=== PATIENT | male | born 1980 | race Caucasian/White ===

== ENCOUNTER 2022-01-24 15:16 | Emergency (ER) | payer SELFPAY ==
[~2022-01-24] VITALS: Ht 180.3 cm; Wt 77.3 kg
--- NOTE | 2022-01-24 15:42 | NUR ---
Pt states he will wait in lobby until called to room.
[2022-01-24 16:04] LABS: BASOPHILS # (AUTO) 0.1 X10'3 (0-0.2); BASOPHILS % (AUTO) 1.2 % (0-1); EOSINOPHILS # (AUTO) 0.2 X10'3 (0-0.9); EOSINOPHILS % (AUTO) 3.5 % (0-6); HEMATOCRIT 43.5 % (42.0-52.0); HEMOGLOBIN 14.7 g/dl (14.0-17.9); LYMPHOCYTES # (AUTO) 1.9 X10'3 (1.1-4.8); LYMPHOCYTES % (AUTO) 29.3 % (21-51); MEAN CORPUSCULAR HEMOGLOBIN 29.1 PG (27.0-31.0); MEAN CORPUSCULAR HGB CONC 33.7 g/dL (33.0-36.5); MEAN CORPUSCULAR VOLUME 86.2 FL (78-98); MEAN PLATELET VOLUME 7.8 FL (7.4-10.4); MONOCYTES # (AUTO) 0.8 X10'3 (0-0.9); MONOCYTES % (AUTO) 12.9 % (2-12); NEUTROPHILS # (AUTO) 3.5 X10'3 (1.8-7.7); NEUTROPHILS % (AUTO) 53.1 % (42-75); PLATELET COUNT 283 X10'3 (140-440); RED BLOOD COUNT 5.05 X10'6 (4.70-6.10); RED CELL DISTRIBUTION WIDTH 14.4 % (11.5-14.5); WHITE BLOOD COUNT 6.5 X10'3 (4.5-11.0)
[2022-01-24 16:19] LABS: ALANINE AMINOTRANSFERASE 50 U/L (12-78); ALBUMIN 3.6 G/DL (3.4-5.0); ALKALINE PHOSPHATASE 127 IU/L (46-116); ANION GAP 11 (8-16); ASPARTATE AMINO TRANSFERASE 29 U/L (10-37); BILIRUBIN,TOTAL 0.1 MG/DL (0.1-1.0); BLOOD UREA NITROGEN 12 MG/DL (7-18); BUN/CREATININE RATIO 12.5 (5.4-32.0); CALCIUM 9.3 MG/DL (8.5-10.1); CHLORIDE 103 MMOL/L (99-107); CREATININE 0.96 MG/DL (0.60-1.10); GLUCOSE 85 MG/DL (70-104); SODIUM 140 MMOL/L (135-145); TOTAL CARBON DIOXIDE 25.8 MMOL/L (24-32); TOTAL PROTEIN 7.3 G/DL (6.4-8.2); eGFR 87 ML/MIN
--- NOTE | 2022-01-24 16:45 | NUR ---
Pt admitted from ER, pt. escorted back to ER overflow with staff. Pt. ambulated independently with no distress noted. Alert and oriented X2 to self and location, unsure of the date and current events. Pt. admitted with concerns of suicide. Pt. states he still has thoughts of suicde and is currently depressed, stating he would poinson himself somehow, run into traffic or have himself shot. Pt. appears irritable and asking about food. Snack provided. Bp. 123/82 p. 74 r. 16 temp. 97.7 100% O2 saturation on RA, complaining of tooth pain 06/03. Will notify MD for pain medication.
[2022-01-24 17:16] LABS: CLARITY,URINE CLEAR (Clear); COLOR,URINE YELLOW (Yellow); GLUCOSE, URINE NEGATIVE (Neg); KETONES,URINE NEGATIVE (Neg); LEUKOCYTE ESTERASE ,URINE NEGATIVE (Neg); NITRITES, URINE NEGATIVE (Neg); OCCULT BLOOD,URINE SMALL (Neg); PROTEIN,URINE NEGATIVE (Neg); UROBILINOGEN,URINE 0.2 E.U/dL (0.2-1.0)
[2022-01-24 17:19] LABS: UA COLLECTION TYPE CLN CATCH MIDSTREAM
[2022-01-24 17:20] LABS: BACTERIA,URINE NONE SEEN /HPF (Neg); MUCUS STRANDS NONE SEEN /LPF (Neg); RBC,URINE 0-2 /HPF (0-2); SQUAMOUS EPITHELIAL CELL,UR NONE SEEN /LPF (FEW); WBC,URINE NONE SEEN /HPF (0-4)
[2022-01-24 17:28] LABS: URINE AMPHETAMINE SCREEN POSITIVE (Neg); URINE BARBITUATE SCREEN NEGATIVE (Neg); URINE BENZODIAZEPINES SCREEN NEGATIVE (Neg); URINE CANNABINOID SCREEN POSITIVE (Neg); URINE COCAINE SCREEN NEGATIVE (Neg); URINE METHADONE SCREEN NEGATIVE (Neg); URINE OPIATE SCREEN NEGATIVE (Neg); URINE PHENCYCLIDINE SCREEN NEGATIVE (Neg)
--- NOTE | 2022-01-24 17:29 | NUR ---
Pt. alert and oriented to baseline, 1:1 done at bedside. Pt. cooperative. Requesting crackers and dinner. Snacks provided. Dr. Major medically cleared pt, aware of [place] Suicide Severity Risk.
--- NOTE | 2022-01-24 17:32 | NUR ---
Felecia LONGORIA notified me regarding patient complaining of tooth pain. Spoke to Dr. Wilder regarding something for dental pain. Dr. Wilder stated that he would place order for tylenol.
[2022-01-24] MEDS ORDERED: acetaminophen 325mg tablet PO STA (17:33)
[2022-01-24] MEDS ORDERED: NO HOME MEDS (17:45)
--- NOTE | 2022-01-24 17:58 | NUR ---
Packet faxed to [facility]. Patient awake sitting up in bed asking for dinner. No distress noted.
--- NOTE | 2022-01-24 18:14 | NUR ---
MARICEL tylenol 650mg administered for oral pain. Pt. ate dinner and is now resting in bed. Addendum: 01/24/22 at 1815 by ARI Report given to SWATI Bond.
--- NOTE | 2022-01-24 18:17 | NUR ---
Pt. sitting up eating dinner at this time.
--- NOTE | 2022-01-24 18:49 | NUR ---
One to one with the patient to assess severity of depressive symptoms and for the presense/severity of psychotic symptoms. The patient gave minimal replies to the assessment questions but his replies were congruent to what was asked. He denies A/V hallucinations. He does report that he feels suicidal and that he feels "nasty" and then clarified that he felt irritable. He was up dated on the plan of care. His packet was received by [facility] and they stated that a clincian would be [facility] He reports he is from [place] and that he is homeless.
--- NOTE | 2022-01-24 20:01 | NUR ---
[facility] clinician here to assess the patient but the patient refused stated he did not want to talk to her.
[2022-01-24 20:25] VITALS: BP 123/82
== END 2022-01-24 20:29 | disposition home or self-care (01) ==
LOC: ER 15:19
DX: F11.10 Opioid abuse, uncomplicated (principal); Z20.822 Contact with and (suspected) exposure to COVID-19; R45.851 Suicidal ideations; F17.200 Nicotine dependence, unspecified, uncomplicated; Z72.89 Other problems related to lifestyle; Z59.00 Homelessness unspecified
CPT/HCPCS: 36415; 80053; 80305; 81001; 85025; 87635; 99284; C9803

== ENCOUNTER 2022-01-29 18:05 | Emergency (ER) | payer SELFPAY ==
[~2022-01-29] VITALS: Ht 188 cm; Wt 86.4 kg
[~2022-01-29 18:05] MED LIST: LIDOcaine 1% W/epiNEPHrine 1:100,000 20ml vial ONE; NO HOME MEDS
[2022-01-29 18:09] VITALS: BP 135/89
[2022-01-29] MEDS ORDERED: TETanus/Pertussis (Acell)/Diphther VAC/PF (Tdap-Adult) 0.5ml syringe IMVAC ONE (19:20)
[2022-01-29] MEDS ORDERED: LIDOcaine 1% W/epiNEPHrine 1:200,000 10ml vial IJ ONE (19:20)
[2022-01-29] MEDS ORDERED: LIDOcaine 1% w/EPI 1:100,000 30ml vial (MDV) IJ ONE (19:25)
[2022-01-29] MEDS ORDERED: HYDROcodone/acetaminophen 10/325mg tab PO ONE (19:25)
[2022-01-29] MEDS ORDERED: rifampin 300mg capsule PO SCH (19:25)
[2022-01-29] MEDS ORDERED: sulfamethoxazole/trimethoprim DS (800/160mg) tablet PO ONE (19:25)
[2022-01-29] MEDS ORDERED: rifampin 300mg capsule PO ONE (19:25)
[2022-01-29] MEDS ORDERED: naproxen 500mg tablet PO ONE (19:25)
--- NOTE | 2022-01-29 19:42 | NUR ---
PO MEDS X4 GIVEN IM GIVEN LIDOCAINE AT BEDSIDE FOR ER
--- NOTE | 2022-01-29 20:30 | NUR ---
DRESSING APPLIED TO LT GREAT TOE
[2022-01-29] MEDS ORDERED: SULF1TAB48 PO (20:49)
== END 2022-01-29 21:06 | disposition home or self-care (01) ==
LOC: ER 18:06
DX: L60.0 Ingrowing nail (principal); F17.210 Nicotine dependence, cigarettes, uncomplicated; Z59.00 Homelessness unspecified; F14.10 Cocaine abuse, uncomplicated
CPT/HCPCS: 11730; 90471; 90715; 99284; J3490

== ENCOUNTER 2022-02-22 22:38 | Emergency (ER) | payer MEDICAID ==
[~2022-02-22] VITALS: Ht 175.3 cm; Wt 68.0 kg
[~2022-02-22 22:38] MED LIST changes: -LIDOcaine 1% W/epiNEPHrine 1:100,000 20ml vial ONE
[2022-02-22 22:40] VITALS: BP 122/89
[2022-02-23 00:24] LABS: BASOPHILS # (AUTO) 0.1 X10'3 (0-0.2); BASOPHILS % (AUTO) 0.9 % (0-1); EOSINOPHILS # (AUTO) 0.4 X10'3 (0-0.9); EOSINOPHILS % (AUTO) 5.3 % (0-6); HEMATOCRIT 41.2 % (42.0-52.0); HEMOGLOBIN 14.2 g/dl (14.0-17.9); LYMPHOCYTES # (AUTO) 2.3 X10'3 (1.1-4.8); LYMPHOCYTES % (AUTO) 33.3 % (21-51); MEAN CORPUSCULAR HEMOGLOBIN 29.5 PG (27.0-31.0); MEAN CORPUSCULAR HGB CONC 34.4 g/dL (33.0-36.5); MEAN CORPUSCULAR VOLUME 85.6 FL (78-98); MEAN PLATELET VOLUME 8.1 FL (7.4-10.4); MONOCYTES % (AUTO) 14.2 % (2-12); NEUTROPHILS # (AUTO) 3.2 X10'3 (1.8-7.7); NEUTROPHILS % (AUTO) 46.3 % (42-75); PLATELET COUNT 240 X10'3 (140-440); RED BLOOD COUNT 4.81 X10'6 (4.70-6.10); RED CELL DISTRIBUTION WIDTH 14.3 % (11.5-14.5); WHITE BLOOD COUNT 6.9 X10'3 (4.5-11.0)
[2022-02-23 00:30] LABS: ALANINE AMINOTRANSFERASE 41 U/L (12-78); ALBUMIN 3.8 G/DL (3.4-5.0); ALKALINE PHOSPHATASE 86 IU/L (46-116); ANION GAP 6 (8-16); ASPARTATE AMINO TRANSFERASE 36 U/L (10-37); BILIRUBIN,TOTAL 0.5 MG/DL (0.1-1.0); BLOOD UREA NITROGEN 26 MG/DL (7-18); BUN/CREATININE RATIO 25.5 (5.4-32.0); CALCIUM 8.5 MG/DL (8.5-10.1); CHLORIDE 104 MMOL/L (99-107); CREATININE 1.02 MG/DL (0.60-1.10); GLUCOSE 90 MG/DL (70-104); POTASSIUM 3.9 MMOL/L (3.5-5.1); SODIUM 139 MMOL/L (135-145); TOTAL CARBON DIOXIDE 28.7 MMOL/L (24-32); TOTAL PROTEIN 7.5 G/DL (6.4-8.2); eGFR 81 ML/MIN
[2022-02-23 01:10] LABS: ETHANOL < 0.010 GM/DL (0.0-0.010)
[2022-02-23 01:10] LABS: URINE AMPHETAMINE SCREEN POSITIVE (Neg); URINE BARBITUATE SCREEN NEGATIVE (Neg); URINE BENZODIAZEPINES SCREEN NEGATIVE (Neg); URINE CANNABINOID SCREEN NEGATIVE (Neg); URINE COCAINE SCREEN NEGATIVE (Neg); URINE METHADONE SCREEN NEGATIVE (Neg); URINE OPIATE SCREEN NEGATIVE (Neg); URINE PHENCYCLIDINE SCREEN NEGATIVE (Neg)
== END 2022-02-23 02:09 | disposition home or self-care (01) ==
LOC: ER 22:39
DX: Z13.89 Encounter for screening for other disorder (principal); R53.1 Weakness; F17.200 Nicotine dependence, unspecified, uncomplicated; F11.90 Opioid use, unspecified, uncomplicated; Z72.89 Other problems related to lifestyle; Z59.00 Homelessness unspecified
CPT/HCPCS: 36415; 80053; 80305; 80320; 85025; 99284

== ENCOUNTER 2022-03-06 19:38 | Emergency (ER) | payer MEDICAID ==
[~2022-03-06] VITALS: Ht 182.9 cm; Wt 73.2 kg
[2022-03-06 21:24] VITALS: BP 115/81
--- NOTE | 2022-03-06 21:30 | NUR ---
RN unable to accurately obtain pmh as patient is oriented to person and place, labile and hallucinating. However pt states he has no pmh.
[2022-03-06 21:35] LABS: BASOPHILS # (AUTO) 0.1 X10'3 (0-0.2); BASOPHILS % (AUTO) 1.1 % (0-1); EOSINOPHILS # (AUTO) 0.3 X10'3 (0-0.9); EOSINOPHILS % (AUTO) 5.3 % (0-6); HEMATOCRIT 41.3 % (42.0-52.0); HEMOGLOBIN 13.8 g/dl (14.0-17.9); LYMPHOCYTES % (AUTO) 36.5 % (21-51); MEAN CORPUSCULAR HEMOGLOBIN 28.3 PG (27.0-31.0); MEAN CORPUSCULAR HGB CONC 33.4 g/dL (33.0-36.5); MEAN CORPUSCULAR VOLUME 84.8 FL (78-98); MEAN PLATELET VOLUME 8.1 FL (7.4-10.4); MONOCYTES # (AUTO) 0.8 X10'3 (0-0.9); MONOCYTES % (AUTO) 13.5 % (2-12); NEUTROPHILS # (AUTO) 2.4 X10'3 (1.8-7.7); NEUTROPHILS % (AUTO) 43.6 % (42-75); PLATELET COUNT 269 X10'3 (140-440); RED BLOOD COUNT 4.87 X10'6 (4.70-6.10); RED CELL DISTRIBUTION WIDTH 13.9 % (11.5-14.5); WHITE BLOOD COUNT 5.6 X10'3 (4.5-11.0)
[2022-03-06 21:41] LABS: ALANINE AMINOTRANSFERASE 42 U/L (12-78); ALBUMIN 3.6 G/DL (3.4-5.0); ALKALINE PHOSPHATASE 89 IU/L (46-116); ANION GAP 3 (8-16); ASPARTATE AMINO TRANSFERASE 27 U/L (10-37); BILIRUBIN,TOTAL 0.3 MG/DL (0.1-1.0); BLOOD UREA NITROGEN 25 MG/DL (7-18); BUN/CREATININE RATIO 23.6 (5.4-32.0); CALCIUM 8.7 MG/DL (8.5-10.1); CHLORIDE 103 MMOL/L (99-107); CREATININE 1.06 MG/DL (0.60-1.10); GLUCOSE 68 MG/DL (70-104); SODIUM 136 MMOL/L (135-145); TOTAL CARBON DIOXIDE 29.7 MMOL/L (24-32); TOTAL PROTEIN 7.1 G/DL (6.4-8.2); eGFR 77 ML/MIN
[2022-03-06 21:48] LABS: ETHANOL < 0.010 GM/DL (0.0-0.010)
--- NOTE | 2022-03-07 00:25 | NUR ---
RN assisted patient to the bathroom. Pt voided 400ml clear, yellow urine. RN sent urine drug screen to lab. Pt back in bed, in lowest position.
[2022-03-07 00:56] LABS: URINE AMPHETAMINE SCREEN POSITIVE (Neg); URINE BARBITUATE SCREEN NEGATIVE (Neg); URINE BENZODIAZEPINES SCREEN NEGATIVE (Neg); URINE CANNABINOID SCREEN NEGATIVE (Neg); URINE COCAINE SCREEN NEGATIVE (Neg); URINE METHADONE SCREEN NEGATIVE (Neg); URINE OPIATE SCREEN NEGATIVE (Neg); URINE PHENCYCLIDINE SCREEN NEGATIVE (Neg)
--- NOTE | 2022-03-07 01:05 | NUR ---
PT APPEARS TO BE SLEEPING, NO CHANGE NOTED
--- NOTE | 2022-03-07 02:01 | NUR ---
Pt turned to left lateral side with eyes closed, respirations 16. Appears to be sleeping. Bed in lowest position.
--- NOTE | 2022-03-07 03:00 | NUR ---
PT REMAINS ASLEEP, NO CHANGE
--- NOTE | 2022-03-07 04:02 | NUR ---
Pt lying prone in bed, appears to be sleeping. Respirations 14.
--- NOTE | 2022-03-07 09:00 | NUR ---
Pt awake and eating his breakfast
--- NOTE | 2022-03-07 09:03 | NUR ---
PACKET FAXED TO [facility]
--- NOTE | 2022-03-07 10:14 | NUR ---
Patient release by [facility], patient educated regarding resources why [facility]. Mckenna VINSON, educated patient regarding need for discharge and patient was given belongings to get dressed. Patient stated, "I don't feel safe." Patient mumbled something about his head. I then stepped in and discussed discharge with the patient, stating that [facility] cleared patient of needed inpatient mental health care. Patient began scouted, " Where the fuck is the nut house!" I stated to patient that we would help with transportation to anywhere in the city limits that he would like to go. Patient repeated the same sentence, while climbing out of bed. At this time patient was inches away from my face, scouting as security was called and other staff presented to show force. I told patient that he did not need to be yelling at me and that [facility] had already evaluated and cleared. Patient was asked to leave the hospital or be escorted out. Patient forcefully grabbed is belongings of the floor, not waiting for discharge instructions and processed to shout that he was going to go to the police department.
== END 2022-03-07 10:28 | disposition home or self-care (01) ==
LOC: ER 19:39
DX: F15.10 Other stimulant abuse, uncomplicated (principal); Z20.822 Contact with and (suspected) exposure to COVID-19; F11.90 Opioid use, unspecified, uncomplicated; R45.851 Suicidal ideations; R45.1 Restlessness and agitation; F17.200 Nicotine dependence, unspecified, uncomplicated; Z72.89 Other problems related to lifestyle; Z59.00 Homelessness unspecified
CPT/HCPCS: 36415; 80053; 80305; 80320; 85025; 87635; 99285; C9803